=== PATIENT | female | born 1950 | race Caucasian/White ===

== ENCOUNTER → 2017-12-13 | Outpatient (CLI) | payer MEDICARE | END | disposition home or self-care (01) | LOC: CFH 07:46 | PROVIDERS: ATTEND Nurse Practitioner Family | DX: Z12.31 Encounter for screening mammogram for malignant neoplasm of breast (principal) | CPT/HCPCS: 77067 ==

== ENCOUNTER 2020-03-12 09:01 | Outpatient (CLI) | payer MEDICARE, OTHER | END 2020-03-12 23:59 | disposition home or self-care (01) | LOC: CFH 09:01 | PROVIDERS: ATTEND Nurse Practitioner Family | DX: Z12.31 Encounter for screening mammogram for malignant neoplasm of breast (principal) | CPT/HCPCS: 77063; 77067 ==

== ENCOUNTER → 2021-05-02 | Outpatient (CLI) | payer MEDICARE, OTHER | END | disposition home or self-care (01) | LOC: CFH 07:53 | PROVIDERS: ATTEND Family Medicine | DX: Z12.31 Encounter for screening mammogram for malignant neoplasm of breast (principal) | CPT/HCPCS: 77063; 77067 ==